=== PATIENT | female | born 2005 | race Caucasian/White ===

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

== ENCOUNTER → 2025-01-23 09:23 | Outpatient (BNVA) | payer OTHER, SELFPAY | PROVIDERS: PCP Nurse Practitioner Family; Visit Provider Nurse Practitioner Family | DX: Z30.09 Encounter for other general counseling and advice on contraception (principal) | CPT/HCPCS: 81025 ==

== ENCOUNTER 2025-02-13 07:31 | Outpatient (CLI) | payer OTHER, SELFPAY ==
--- NOTE | 2025-02-13 07:45 | USCV_ITS ---
Lorenzo Mendes Age: 20 Gender: F : 2005 Exam Date: 02/13/2025 08:09 Ordering Phys: Rene Villalobos M.D ([email or web address]) Technologist: Andrea Montes [place]am [place] [facility] [place]: chest pain BP: 118 / 62 HR: 68 Rhythm: Sinus Technical Quality: Adequate MEASUREMENTS (Male / Female) Normal Values 2D ECHO LV Diastolic Diameter PLAX 3.6 cm 4.2 - 5.9 / 3.9 - 5.3 cm IVS Diastolic Thickness 1.1 cm 0.6 - 1.0 / 0.6 - 0.9 cm IVS Systolic Thickness 1.1 cm LVPW Diastolic Thickness 1.1 cm 0.6 - 1.0 / 0.6 - 0.9 cm LVPW Systolic Thickness 1.5 cm LVOT Diameter 2.0 cm LV Ejection Fraction 2D Teich 64.9 % LV Ejection Fraction MOD 4C 69.1 % LV Ejection Fraction MOD 2C 75.9 % LV Ejection Fraction 2C AL 75.9 % LA Diameter 3.2 cm RA Systolic Volume 4C AL 20.6 ml RA Systolic Volume 4C MOD 20.4 ml LA Sys Volume AL 28.9 cm cubed LA Sys Volume Index AL 16.6 cm cubed/m squared Aorta at Sinotubular Diameter 1.9 cm IVC Diameter 1.9 cm M-MODE LA Ao Ratio MM 1.4 AV Cusp Separation MM 1.9 cm DOPPLER AV Peak Velocity 111.0 cm/s LVOT Peak Velocity 94.0 cm/s AV Area Cont Eq vti 3.4 cm squared AV Area Cont Eq pk 2.8 cm squared MV Peak Velocity 86.0 cm/s MV Area PHT 3.5 cm squared Mitral E to A Ratio 1.7 TR Peak Velocity 261.0 cm/s TR Peak Gradient 27.2 mmHg TR Mean Velocity 208.0 cm/s TR Mean Gradient 18.2 mmHg TR Velocity Time Integral 61.1 cm PV Peak Velocity 104.3 cm/s RV Ejection Time 0.3 s FINDINGS Left Ventricle Left ventricle is normal in size. LV systolic function is normal with EF of 55-60%. No regional wall motion abnormalities. Right Ventricle Normal in size and function Right Atrium Normal in size Left Atrium Normal in size Mitral Valve Structurally normal mitral valve. Trace mitral regurgitation Aortic Valve Structurally normal aortic valve. No significant stenosis or regurgitation Tricuspid Valve Mild tricuspid regurgitation. Pulmonary artery systolic pressure is normal Pulmonic Valve Not well visualized Pericardium Normal Aorta Normal in size IVC Appears to be normal CONCLUSIONS LV systolic function is normal with EF of 55-60% Trace mitral regurgitation Mild tricuspid regurgitation No comparison studies are available Rene Villalobos MD (Electronically Signed) Final Date: 22 Feb 2025 22:46 S
== END 2025-02-13 07:32 | disposition home or self-care (01) ==
PROVIDERS: PCP Nurse Practitioner Family; Visit Provider Internal Medicine
DX: R07.9 Chest pain, unspecified (principal); R06.02 Shortness of breath; I07.1 Rheumatic tricuspid insufficiency
CPT/HCPCS: 93306

== ENCOUNTER 2025-02-27 16:08 | Outpatient (CLI) | payer OTHER, SELFPAY ==
[2025-02-27 16:36] LABS: Basophils # 0.1 10^3/uL (0.0-0.1); Basophils % 0.3 %; Eosinophils % 0.1 %; Hematocrit 40.2 % (36-47); Lymphocytes % 11.1 %; Mean Corpuscular HGB Conc 32.3 g/dL (30-55); Mean Corpuscular Hemoglobin 27.8 pg (27-33); Mean Corpuscular Volume 85.9 fl (85-98); Mean Platelet Volume 9.4 fL (7.4-10.4); Monocytes # 1.1 10^3/uL (0.2-0.9); Monocytes % 6.3 %; Neutrophils # 14.43 10^3/uL (1.8-8.0); Neutrophils % 81.8 %; Nucleated Red Blood Cells % 0 %; Platelet Count 463 10^3/cmm (157-399); Red Blood Count 4.68 10^6/uL (3.85-5.65); Red Cell Distribution Width 12.9 % (12.1-15.1); White Blood Count 17.64 10^3/uL (4.5-13.0)
[2025-02-27 16:44] LABS: Erythrocyte Sedimentation Rate 2 mm/hr (0-15)
[2025-02-27 16:54] LABS: Alanine Aminotransferase 10 U/L (0-33); Albumin Level 4.5 g/dL (3.5-5.2); Alkaline Phosphatase 72 U/L (35-105); Anion Gap 16.3 (5-19); Aspartate Amino Transferase 11 U/L (0-32); Blood Urea Nitrogen 13 mg/dL (6-20); Calcium 9.5 mg/dL (8.5-10.5); Carbon Dioxide 25 mmol/L (22-29); Chloride 102 mmol/L (98-107); Globulin 3.1 g/dL (1.3-4.6); Glomerular Filtration Rate 127.5 mL/min (90-130); Glucose 102 mg/dL (65-115); Osmolality Calculated 288 mOsm/kg (285-295); Potassium 4.3 mmol/L (3.5-5.1); Sodium 139 mmol/L (136-145); Total Bilirubin 0.2 mg/dL (0.15-1.2); Total Protein 7.6 g/dL (6.6-8.7)
== END 2025-02-27 16:09 | disposition home or self-care (01) ==
PROVIDERS: PCP Nurse Practitioner Family; Visit Provider Nurse Practitioner Family
DX: M25.50 Pain in unspecified joint (principal)
CPT/HCPCS: 36415; 80053; 85025; 85651; 86140

== ENCOUNTER 2025-03-03 16:33 | Outpatient (CLI) | payer OTHER, SELFPAY | END 2025-03-03 16:34 | disposition home or self-care (01) | PROVIDERS: PCP Nurse Practitioner Family; Visit Provider Nurse Practitioner Family | DX: M25.50 Pain in unspecified joint (principal) | CPT/HCPCS: 85025; 85651; 86140 ==

== ENCOUNTER 2025-03-18 16:48 | Oncology outpatient (recurring) (ONCR) | payer OTHER, SELFPAY | END 2025-03-21 23:59 | disposition home or self-care (01) | PROVIDERS: PCP Nurse Practitioner Family; Visit Provider Nurse Practitioner Family | DX: M25.50 Pain in unspecified joint (principal); M25.40 Effusion, unspecified joint | CPT/HCPCS: 36415 ==

== ENCOUNTER → 2025-07-28 10:28 | Outpatient (BNVA) | payer SELFPAY | PROVIDERS: PCP Nurse Practitioner Family; Visit Provider Nurse Practitioner Family | DX: M25.59 Pain in other specified joint (principal) | CPT/HCPCS: 86160; 86162; 86235; 86255; 86376; 86431 ==